=== PATIENT | male | born 1980 | race Caucasian/White ===

== ENCOUNTER 2023-06-09 15:48 | Emergency (ER) | payer MEDICARE, SELFPAY ==
[2023-06-09 15:52] VITALS: BP 151/120; PULSE 102; RESP 20; TEMP 36.4; O2SAT 98
[2023-06-09 16:25] LABS: Basophils Absolute Auto 0.1 K/mm3 (0.0-0.1); Basophils Percent Auto 0.5 % (0.2-1.2); Eosinophils Absolute Auto 0.1 K/mm3 (0-0.3); Eosinophils Percent Auto 1.2 % (0-4.4); Hematocrit 51.7 % (42.0-52.0); Hemoglobin 17.6 g/dL (14.0-18.0); Immature Granulocyte Absolute 0.04 K/mm3 (0.00-0.031); Immature Granulocyte Percent A 0.3 % (0-0.5); Lymphocytes Absolute Auto 2.02 K/mm3 (0.9-3.2); Lymphocytes Percent Auto 17.4 % (18.3-44.2); Mean Corpuscular Hemoglobin 31.4 pg (26-34); Mean Corpuscular Volume 92.3 fl (80-100); Monocytes Absolute Auto 0.9 K/mm3 (0.1-0.6); Neutrophils Absolute Auto 8.4 K/mm3 (1.3-6.7); Neutrophils Percent Auto 72.6 % (45.5-73.1); Platelet Count Result 203 k/mm3 (150-375); Red Cell Distribution Width 12.5 % (11.5-14.5); White Blood Count 11.6 K/mm3 (4.5-10.0)
[2023-06-09 16:32] LABS: Appearance Urine Clear (Clear); Bacteria Urine None Seen /hpf; Bilirubin Urine Negative (Negative); Blood Urine Negative (Negative); Color Urine Yellow (Yellow); Glucose Urine UA Negative (Negative); Ketones Urine Trace mg/dL (Negative); Leukocyte Esterase Ur Negative LEU/UL (Negative); Nitrate Urine Negative (Negative); Non Pathogenic Casts 0-2; Protein Urine Trace mg/dL (Negative); Specific Grav Ur 1.018 (1.001-1.035); Squamous Epithelial Cell Urine None Seen /hpf (Few); WBC Urine 0-5 /hpf (0-3)
[2023-06-09 16:36] LABS: Add Urine Microscopic? YES
[2023-06-09 16:44] LABS: Amphetamine Screen Urine Negative (Negative); Barbiturate Screen Urine Negative (Negative); Benzodiazepines Screen Urine Negative (Negative); Cannabinoid Screen Urine Positive (Negative); Cocaine Screen Urine Negative (Negative); Ethanol < 10 mg/dL (<10); Methadone Screen Urine Negative (Negative); Opiate Screen Urine Negative (Negative); Phencyclidine Screen Urine Negative (Negative)
[2023-06-09 16:45] LABS: Alanine Aminotransferase 18 U/L (6-50); Albumin Level 4.8 g/dL (3.5-5.1); Alkaline Phosphatase 74 U/L (38-126); Anion Gap 4 mmol/L (4-12); Aspartate Amino Transferase 25 U/L (17-59); Bilirubin,Total 1.3 mg/dL (0.2-1.3); Blood Urea Nitrogen 11 mg/dL (9-20); Calcium 9.6 mg/dL (8.4-10.2); Carbon Dioxide 28 mmol/L (22-30); Chloride 103 mmol/L (98-107); Estimated CRCL calculation 107 ml/min; Estimated Glomerular Filt Rate > 60; Glucose 100 mg/dL (65-110); Potassium 4.1 mmol/L (3.4-5.0); Sodium 135 mmol/L (137-145)
--- NOTE | 2023-06-09 17:22 | ED.PSYCH ---
HPI - Psych General Chief Complaint: Psychiatric Symptoms Stated Complaint: Bipolar, pastor Time Seen by Provider: 06/09/23 16:08 History of Present Illness HPI Narrative: Patient is a 43-year-old male with history of bipolar disorder, not currently on any medications here with acute pastor. Patient states that his father in 2019 and he has been struggling with his symptoms since that time. He notes an acute decompensation over the last 1 week. He states that he recently got involved with social media, believes that he gained a following on social media and had been in contact with a former ex girlfriend which has caused him to have racing thoughts and become preoccupied. He has had about 1 week without having any good sleep. He does note that he posted something on social media which was a picture threatening to harm his mother and this prompted him to get seen in the emergency department. He currently is denying any suicidal ideation but notes that he has frequently struggled with passive suicidal ideation without a plan for many years. He is not currently follow with any psychiatrist and does not take any medications as he believes he is medication resistant with his bipolar disorder. He had 1 prior psychiatric hospitalization approximately 20 years ago when he was 1st diagnosed with bipolar disorder. He denies any attempts at self-harm today. He does note impulsive behavior over the last week. 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 He does note regular marijuana use which he uses to help with his symptoms. , patient does note that yesterday he was jumping in his room and feels as though he pulled a muscle in his right calf. Denies falling to the ground or hitting this leg on anything. Related Data Allergies Allergy/AdvReac Type Severity Reaction Status Date / Time Penicillins Allergy Severe Unknown Verified 09/25/22 09:00 Review of Systems Review of Systems: All systems reviewed & are unremarkable except as noted in HPI and below PMFSH Family History Family History Father Hypertension Cerebrovascular accident Mother Diabetes mellitus Depression Social History Social History Smoking packs per day: 1 Smoking cigarettes per day: 20.0 Smoking status: Current every day smoker Tobacco type: cigarettes Alcohol intake: current Alcohol use details: social Substance use: current Substance use type: marijuana Other substance usage details: vape Lack of Transportation: No Lack of Food: Never True Current Housing: I Have Housing Concerned About Future Housing: No Difficulty Paying Gas/Electric Bills: No Difficulty Paying for Meds: No Currently Unemployed: Decline to Answer Education: High School Diploma/GED Difficulty w/ Childcare or Family Care: No Exam Narrative: GENERAL: Well-appearing, well-nourished, and in no acute distress. HEAD: Normocephalic, atraumatic. EYES: PERRLA and EOMI. ENT: Nares clear. Mucous membranes moist. NECK: Supple. CHEST: Clear to auscultation. No respiratory distress. HEART: Regular rate and rhythm. Normal peripheral pulses. ABDOMEN: Soft, nontender, nondistended. EXTREMITIES: Normal range of motion. No edema. Calf tenderness on the right, no bruising, deformities, swelling noted. SKIN: Warm, dry, no rash. NEURO: No focal deficits. Alert and oriented x3. PSYCH: Paranoia, impulsive decision making, passive suicidal thoughts Course Course Emergency Course: Chart review performed. Patient here with psychiatric complaints, history of bipolar. He is reportedly not taking his medications. Triage vitals show HTN, tachycardia, otherwise within normal limits. Patient seen jose antonio
[2023-06-09 17:41] LABS: Influenza A QL RT-PCR Negative (Negative); Influenza B QL RT-PCR Negative (Negative); RSV RNA, RT-PCR Negative (Negative); SARS-CoV-2 RNA PCR Negative (Negative)
--- NOTE | 2023-06-09 19:22 | PC.NURSE ---
Mother Kamilla, contact number [phone].
[2023-06-09 19:33] LABS: Acetaminophen < 10 ug/mL (10-30); Salicylate < 1.0 mg/dL (2-20)
--- NOTE | 2023-06-09 19:57 | PC.NURSE ---
this rn assumed care of patient. this rn took patient report from P[facility] M[facility].
== END 2023-06-09 21:30 | disposition home or self-care (01) ==
PROVIDERS: Physician Assistant; Emergency Provider Student in an Organized Health Care Education/Training Program; PCP Nurse Practitioner Family
DX: F30.2 Manic episode, severe with psychotic symptoms (principal); Z20.822 Contact with and (suspected) exposure to COVID-19; F17.210 Nicotine dependence, cigarettes, uncomplicated
CPT/HCPCS: 36415; 80053; 80307; 81001; 84443; 85025; 87637; 99284

== ENCOUNTER 2024-01-22 09:43 | Emergency (ER) | payer MEDICARE, SELFPAY ==
[2024-01-22 09:50] VITALS: BP 170/119; PULSE 116; RESP 16; TEMP 36.6; O2SAT 99
--- NOTE | 2024-01-22 10:37 | ED_ITS ---
HPI - Psych General Chief Complaint: Psychiatric Symptoms <Michelle Lentz PA-C - Last Filed: 01/24/24 10:52> Stated Complaint: psych eval <MICHEAL Brown Last Filed: 01/24/24 10:52> Time Seen by Provider: 01/22/24 10:07 <MICHEAL Brown Last Filed: 01/24/24 10:52> Source: patient <MICHEAL Brown Last Filed: 01/24/24 10:52> Mode of arrival: ambulatory <MICHEAL Brown Last Filed: 01/24/24 10:52> Limitations: no limitations <MICHEAL Brown Last Filed: 01/24/24 10:52> History of Present Illness HPI Narrative: This is a 43-year-old male that presents to the emergency department for psychiatric evaluation. He was brought in by the police department. Reports he lives with his mother who has bipolar disorder. Reports she is very toxic . He told her if they were crushed he would kill himself. Although he has no active plan to harm himself or anyone else's and reports he wants to live. He admits to not regularly taking his psychiatric medication. He also did not take his blood pressure medicine this morning. He does have a therapist that he sees. Reports previous history of attempts of self-harm in previous psychiatric hospitalizations. Denies hallucinations. <Michelle Lentz PA-C - Last Filed: 01/24/24 10:52> Related Data Allergies/Adverse Reactions: Allergies Allergy/AdvReac Type Severity Reaction Status Date / Time Penicillins Allergy Severe Unknown Verified 01/22/24 09:54 <MICHEAL Brown Last Filed: 01/24/24 10:52> Review of Systems Review of Systems: CONSTITUTIONAL: Denies fever PSYCHIATRIC: Reports anxiety and depression. <MICHEAL Brown Last Filed: 01/24/24 10:52> All systems reviewed & are unremarkable except as noted in HPI and below <MICHEAL Brown Last Filed: 01/24/24 10:52> [facility] Past Medical History Medical History: Medical History (Updated 01/22/24 @ 18:15 by Michelle Lentz PA-C) Bipolar disorder <Michelle Lentz PA-C - Last Filed: 01/24/24 10:52> Family History Family History: Family History Father Hypertension Cerebrovascular accident Mother Diabetes mellitus Depression <Michelle Lentz PA-C - Last Filed: 01/24/24 10:52> Social History Social History: Social History (Updated 10/30/23 @ 07:24 by Queta Moscoso [facility]) Smoking packs per day: 0.5 Smoking cigarettes per day: 10.0 Smoking status: Current every day smoker Tobacco type: cigarettes Alcohol intake: current Alcohol use details: social Substance use: current Substance use type: marijuana Other substance usage details: vape Do You Feel Safe in your Home?: No Lack of Transportation: No Lack of Food: Never True Current Housing: I Have Housing Concerned About Future Housing: No Difficulty Paying Gas/Electric Bills: No Difficulty Paying for Meds: No Currently Unemployed: Decline to Answer Education: High School Diploma/GED Difficulty w/ Childcare or Family Care: No Living arrangements: with family Occupation/Education: unemployed Gender identity (if verbalized by the patient): Male Spiritual care concerns: No Agree to blood products: No <Michelle Lentz PA-C - Last Filed: 01/24/24 10:52> Exam Narrative: GENERAL: Well-appearing, well-nourished, and in no acute distress. HEAD: Normocephalic, atraumatic. EYES: EOMI. CHEST: Clear to auscultation. No respiratory distress. No wheezes rales or rhonchi HEART: Regular rate and rhythm. No murmur heard. Normal peripheral pulses. EXTREMITIES: Normal range of motion. No edema. SKIN: Warm, dry, no rash. NEURO: No focal deficits. Alert and oriented x3. PSYCH: Tearful, mildly anxious <Michelle Lentz PA-C - Last Filed: 01/24/24 10:52> Course Course Emergency Course: Patient medically cleared for evaluation by crisis. Crisis believes patient would be best served to be admitted for further psychiatric evaluation/management <Michelle Lentz PA-C - Last Filed: 01/24/24 10:52> PHYSICAL INSTRUCTOR/PA Physician Supervision For this patient encounter, I reviewed the PHYSICAL INSTRUCTOR or PA documentation, treatment plan, and medical decision making; and I had [id number] time with this patient. <Juan Rodríguez MD - Last Filed: 01/27/24 18:55> Vital Signs Vital signs: Vital Signs Temperature 97.9 F 01/22/24 09:50 Pulse Rate 116 H 01/22/24 09:50 Respiratory Rate 16 01/22/24 09:50 Blood Pressure 170/119 H 01/22/24 09:50 Pulse Oximetry 99 01/22/24 09:50 Oxygen Delivery Room Air 01/22/24 09:50 Temperature 97.9 F 01/22/24 09:50 Pulse Rate 102 H 01/22/24 17:30 Respiratory Rate 17 01/22/24 17:30 Blood Pressure 152/92 H 01/22/24 17:30 Pulse Oximetry 99 01/22/24 17:30 Oxygen Delivery Room Air 01/22/24 09:50 <Michelle Lentz PA-C - Last Filed: 01/24/24 10:52> Vital Signs Temperature 97.9 F 01/22/24 09:50 Pulse Rate 116 H 01/22/24 09:50 Respiratory Rate 16 01/22/24 09:50 Blood Pressure 170/119 H 01/22/24 09:50 Pulse Oximetry 99 01/22/24 09:50 Oxygen Delivery Room Air 01/22/24 09:50 Temperature 97.9 F 01/22/24 09:50 Pulse Rate 102 H 01/22/24 17:30 Respiratory Rate 17 01/22/24 17:30 Blood Pressure 152/92 H 01/22/24 17:30 Pulse Oximetry 99 01/22/24 17:30 Oxygen Delivery Room Air 01/22/24 09:50 <Juan Rodríguez MD - Last Filed: 01/27/24 18:55> MDM - Psych MDM Narrative Medical decision making narrative: Patient presents to the emergency department for some suicidal and homicidal statements. History of bipolar disorder. Reports he does not routinely take his medications. Will pressure elevated upon arrival, he also reports he did not take his blood pressure medication. This improved with his home medication. CBC shows mild hemoconcentration. Metabolic panel without concerning findings. TSH is normal. Urine without evidence of infection. Drug screen positive for cannabinoids. Patient was medically cleared for evaluation by crisis. [facility] believes patient would be best served to be admitted for further psychiatric evaluation/management <Michelle Lentz PA-C - Last Filed: 01/24/24 10:52> Differential Diagnosis Differential diagnosis: Likely acute psychosis, chronic schizophrenia, suicidal ideation, bipolar disorder, depression and acute anxiety <Michelle Lentz PA-C - Last Filed: 01/24/24 10:52> Lab Data Attestation: I reviewed the patient's lab results. <Michelle Lentz PA-C - Last Filed: 01/24/24 10:52> Result diagrams: 01/22/24 10:31 01/22/24 10:31 <Michelle Lentz PA-C - Last Filed: 01/24/24 10:52> Labs: Lab Results 01/22/24 01/22/24 Range/Units 10:31 10:48 WBC 7.2 (4.5-10.0) K/mm3 RBC 5.94 (4.6-6.20) M/mm3 Hgb 18.8 H (14.0-18.0) g/dL Hct 54.4 H (42.0-52.0) % MCV 91.6 (80-100) fl MCH 31.6 (26-34) pg MCHC 34.6 (32-36) g/dl RDW 12.7 (11.5-14.5) % Plt Count 194 (150-375) k/mm3 MPV 10.2 (7.4-10.4) fl Immature Gran % (Auto) 0.1 (0-0.5) % Neut % (Auto) 52.5 (45.5-73.1) % Lymph % (Auto) 32.4 (18.3-44.2) % Schley % (Auto) 8.6 H (2.6-8.5) % Eos % (Auto) 5.3 H (0-4.4) % Baso % (Auto) 1.1 (0.2-1.2) % Lymph # (Auto) 2.34 (0.9-3.2) K/mm3 Schley # (Auto) 0.6 (0.1-0.6) K/mm3 Eos # (Auto) 0.4 H (0-0.3) K/mm3 Baso # (Auto) 0.1 (0.0-0.1) K/mm3 Abs Immat Gran (auto) 0.01 (0.00-0.031) K/mm3 Absolute Neuts (auto) 3.8 (1.3-6.7) K/mm3 Absolute Nucleated RBC 0.000 (0.0-0.012) K/mm3 Nucleated RBC % 0.0 (0.0-0.2) % Sodium 139 (137-145) mmol/L Potassium 4.3 (3.4-5.0) mmol/L Chloride 101 (98-107) mmol/L Carbon Dioxide 31 H (22-30) mmol/L Anion Gap 7 (4-12) mmol/L BUN 15 (9-20) mg/dL Creatinine 1.00 (0.7-1.3) mg/dL Estim Creat Clear Calc 97 ml/min Estimated GFR > 60 (59 - ) Glucose 106 (65-110) mg/dL Calcium 9.7 (8.4-10.2) mg/dL Total Bilirubin 0.7 (0.2-1.3) mg/dL AST 32 (17-59) U/L ALT 25 (6-50) U/L Alkaline Phosphatase 67 (38-126) U/L Total Protein 9.0 H (6.3-8.2) g/dL Albumin 5.1 (3.5-5.1) g/dL TSH (Reflex) 1.210 (0.465-4.68) uIU/mL Urine Color Yellow (Yellow) Urine Appearance Clear (Clear) Urine pH 5.5 (5.0-9.0) Ur Specific [place] 1.009 (1.001-1.035) Urine Protein Negative (Negative) mg/dL Urine Glucose (UA) Negative (Negative) mg/dL Urine Ketones Negative (Negative) mg/dL Ur Blood (Man) Negative (Negative) Urine Nitrate Negative (Negative) Urine Bilirubin Negative (Negative) Urine Urobilinogen 0.2 (<2.0) mg/dL Leukocyte Esterase Rfl Negative (Negative) HENRI/UL Urine Opiates Screen Negative (Negative) Urine Methadone Screen Negative (Negative) Ur Barbiturates Screen Negative (Negative) Ur Phencyclidine Scrn Negative (Negative) Ur Amphetamine Screen Negative (Negative) U Benzodiazepines Scrn Negative (Negative) Urine Cocaine Screen Negative (Negative) U Cannabinoids Screen Positive A (Negative) Ethyl Alcohol < 10 (<10) mg/dL SARS-CoV-2 RNA (RT-PCR) Negative (Negative) <Michelle Lentz PA-C - Last Filed: 01/24/24 10:52> Lab Results 01/22/24 01/22/24 Range/Units 10:31 10:48 WBC 7.2 (4.5-10.0) K/mm3 RBC 5.94 (4.6-6.20) M/mm3 Hgb 18.8 H (14.0-18.0) g/dL Hct 54.4 H (42.0-52.0) % MCV 91.6 (80-100) fl MCH 31.6 (26-34) pg MCHC 34.6 (32-36) g/dl RDW 12.7 (11.5-14.5) % Plt Count 194 (150-375) k/mm3 MPV 10.2 (7.4-10.4) fl Immature Gran % (Auto) 0.1 (0-0.5) % Neut % (Auto) 52.5 (45.5-73.1) % Lymph % (Auto) 32.4 (18.3-44.2) % Schley % (Auto) 8.6 H (2.6-8.5) % Eos % (Auto) 5.3 H (0-4.4) % Baso % (Auto) 1.1 (0.2-1.2) % Lymph # (Auto) 2.34 (0.9-3.2) K/mm3 Schley # (Auto) 0.6 (0.1-0.6) K/mm3 Eos # (Auto) 0.4 H (0-0.3) K/mm3 Baso # (Auto) 0.1 (0.0-0.1) K/mm3 Abs Immat Gran (auto) 0.01 (0.00-0.031) K/mm3 Absolute Neuts (auto) 3.8 (1.3-6.7) K/mm3 Absolute Nucleated RBC 0.000 (0.0-0.012) K/mm3 Nucleated RBC % 0.0 (0.0-0.2) % Sodium 139 (137-145) mmol/L Potassium 4.3 (3.4-5.0) mmol/L Chloride 101 (98-107) mmol/L Carbon Dioxide 31 H (22-30) mmol/L Anion Gap 7 (4-12) mmol/L BUN 15 (9-20) mg/dL Creatinine 1.00 (0.7-1.3) mg/dL Estim Creat Clear Calc 97 ml/min Estimated GFR > 60 (59 - ) Glucose 106 (65-110) mg/dL Calcium 9.7 (8.4-10.2) mg/dL Total Bilirubin 0.7 (0.2-1.3) mg/dL AST 32 (17-59) U/L ALT 25 (6-50) U/L Alkaline Phosphatase 67 (38-126) U/L Total Protein 9.0 H (6.3-8.2) g/dL Albumin 5.1 (3.5-5.1) g/dL TSH (Reflex) 1.210 (0.465-4.68) uIU/mL Urine Color Yellow (Yellow) Urine Appearance Clear (Clear) Urine pH 5.5 (5.0-9.0) Ur Specific [place] 1.009 (1.001-1.035) Urine Protein Negative (Negative) mg/dL Urine Glucose (UA) Negative (Negative) mg/dL Urine Ketones Negative (Negative) mg/dL Ur Blood (Man) Negative (Negative) Urine Nitrate Negative (Negative) Urine Bilirubin Negative (Negative) Urine Urobilinogen 0.2 (<2.0) mg/dL Leukocyte Esterase Rfl Negative (Negative) HENRI/UL Urine Opiates Screen Negative (Negative) Urine Methadone Screen Negative (Negative) Ur Barbiturates Screen Negative (Negative) Ur Phencyclidine Scrn Negative (Negative) Ur Amphetamine Screen Negative (Negative) U Benzodiazepines Scrn Negative (Negative) Urine Cocaine Screen Negative (Negative) U Cannabinoids Screen Positive A (Negative) Ethyl Alcohol < 10 (<10) mg/dL SARS-CoV-2 RNA (RT-PCR) Negative (Negative) <Juan Rodríguez MD - Last Filed: 01/27/24 18:55> Critical Care Time Critical Care Time Critical Care Time: No <Michelle Lentz PA-C - Last Filed: 01/24/24 10:52> Discharge Plan Discharge Clinical Impression: Bipolar disorder Qualifiers: Active/Remission status: currently active Current bipolar episode type: mixed Current episode severity: unspecified Qualified Code(s): F31.60 - Bipolar disorder, current episode mixed, unspecified <Michelle Lentz PA-C - Last Filed: 01/24/24 10:52> Patient Disposition: Psychiatric Hosp <Michelle Lentz PA-C - Last Filed: 01/24/24 10:52> Condition: Stable <Michelle Lentz PA-C - Last Filed: 01/24/24 10:52> Prescriptions: No Action olanzapine 10 mg tablet 10 mg PO QHS Qty: 30 3RF Hold Instructions: .Provider Order lisinopril 5 mg tablet 5 mg PO DAILY Qty: 90 1RF Hold Instructions: .Provider Order triamcinolone acetonide 0.1 % ointment 1 applic topical BID Qty: 30 0RF <Michelle Lentz PA-C - Last Filed: 01/24/24 10:52> Follow-up/Referrals: Nimco Blankenship APRN [Primary Care Provider] - <Michelle Lentz PA-C - Last Filed: 01/24/24 10:52>
[2024-01-22 10:55] LABS: Add Urine Microscopic? NO; Appearance Urine Clear (Clear); Bilirubin Urine Negative (Negative); Blood Urine Negative (Negative); Color Urine Yellow (Yellow); Glucose Urine UA Negative (Negative); Ketones Urine Negative (Negative); Leukocyte Esterase Ur Negative LEU/UL (Negative); Nitrate Urine Negative (Negative); Protein Urine Negative (Negative); Specific Grav Ur 1.009 (1.001-1.035); Urobilinogen Urine 0.2 mg/dL (<2.0); pH Urine 5.5 (5.0-9.0)
[2024-01-22 10:58] LABS: Basophils Absolute Auto 0.1 K/mm3 (0.0-0.1); Basophils Percent Auto 1.1 % (0.2-1.2); Eosinophils Absolute Auto 0.4 K/mm3 (0-0.3); Eosinophils Percent Auto 5.3 % (0-4.4); Hematocrit 54.4 % (42.0-52.0); Hemoglobin 18.8 g/dL (14.0-18.0); Immature Granulocyte Absolute 0.01 K/mm3 (0.00-0.031); Immature Granulocyte Percent A 0.1 % (0-0.5); Lymphocytes Absolute Auto 2.34 K/mm3 (0.9-3.2); Lymphocytes Percent Auto 32.4 % (18.3-44.2); Mean Corpuscular HGB Conc 34.6 g/dl (32-36); Mean Corpuscular Hemoglobin 31.6 pg (26-34); Mean Corpuscular Volume 91.6 fl (80-100); Mean Platelet Volume 10.2 fl (7.4-10.4); Monocytes Absolute Auto 0.6 K/mm3 (0.1-0.6); Monocytes Percent Auto 8.6 % (2.6-8.5); Neutrophils Absolute Auto 3.8 K/mm3 (1.3-6.7); Neutrophils Percent Auto 52.5 % (45.5-73.1); Platelet Count Result 194 k/mm3 (150-375); Red Blood Count 5.94 M/mm3 (4.6-6.20); Red Cell Distribution Width 12.7 % (11.5-14.5); White Blood Count 7.2 K/mm3 (4.5-10.0)
[2024-01-22 10:59] LABS: Ethanol < 10 mg/dL (<10)
[2024-01-22 11:00] LABS: Alanine Aminotransferase 25 U/L (6-50); Albumin Level 5.1 g/dL (3.5-5.1); Alkaline Phosphatase 67 U/L (38-126); Anion Gap 7 mmol/L (4-12); Aspartate Amino Transferase 32 U/L (17-59); Bilirubin,Total 0.7 mg/dL (0.2-1.3); Blood Urea Nitrogen 15 mg/dL (9-20); Calcium 9.7 mg/dL (8.4-10.2); Carbon Dioxide 31 mmol/L (22-30); Chloride 101 mmol/L (98-107); Estimated CRCL calculation 97 ml/min; Estimated Glomerular Filt Rate > 60; Glucose 106 mg/dL (65-110); Potassium 4.3 mmol/L (3.4-5.0); Sodium 139 mmol/L (137-145)
[2024-01-22 11:22] LABS: Amphetamine Screen Urine Negative (Negative); Barbiturate Screen Urine Negative (Negative); Benzodiazepines Screen Urine Negative (Negative); Cannabinoid Screen Urine Positive (Negative); Cocaine Screen Urine Negative (Negative); Methadone Screen Urine Negative (Negative); Opiate Screen Urine Negative (Negative); Phencyclidine Screen Urine Negative (Negative)
[2024-01-22] MEDS: LORazepam (*CRX) 0.5 MG TABLET PO (11:25)
[2024-01-22] MEDS: lisinopriL 5 MG TABLET PO (11:25)
[2024-01-22 11:26] LABS: SARS-CoV-2 RNA PCR Negative (Negative)
--- NOTE | 2024-01-22 14:10 | PC.NURSE ---
crisis reports to this RN that pt had verbalized homicidal thoughts towards his mother and has plans in place. pt does have access to firearms at home. plan to have pt placed involuntary. EDP made aware.
--- NOTE | 2024-01-22 15:18 | PC.NURSE ---
asked pt if he would like anything to eat or drink. pt states no I'm good go ahead and just say I refused and get that stuff started told pt if he changes his mind to let me know.
--- NOTE | 2024-01-22 15:53 | PC.NURSE ---
Sunitha from [facility] called and states they will accept pt.
[2024-01-22 17:30] VITALS: BP 152/92; PULSE 102; RESP 17; O2SAT 99
--- NOTE | 2024-01-22 19:43 | PC.NURSE ---
accepting physician at [facility] is Dr. Adams. Report was called to P[facility]. ETA for transfer is around 1999.
== END 2024-01-22 20:58 ==
PROVIDERS: Emergency Provider Physician Assistant; PCP Nurse Practitioner Family
DX: F31.60 Bipolar disorder, current episode mixed, unspecified (principal); Z11.52 Encounter for screening for COVID-19; I10 Essential (primary) hypertension; F17.210 Nicotine dependence, cigarettes, uncomplicated; T46.5X6A Underdosing of other antihypertensive drugs, initial encounter; T43.506A Underdosing of unspecified antipsychotics and neuroleptics, initial encounter; Z91.128 Patient's intentional underdosing of medication regimen for other reason; Z79.899 Other long term (current) drug therapy
CPT/HCPCS: 36415; 80053; 80307; 81003; 82077; 84443; 85025; 87635; 99285; A9270

== ENCOUNTER 2025-03-01 15:58 | Emergency (ER) | payer MEDICARE, SELFPAY ==
--- OUTSIDE RECORDS SUMMARY | 2024-05-27 02:00 | XMS_ITS ---
Author Organization [facility] [employer] [facility] Address [address] [facility] [address] [place] [address] Care Team Providers Care Stunt Driver Name Role Phone Nimco MONTE Primary Care Provider Unavailab Ramandeep Raygoza Unavailable [phone] Mendel Parker Unavailable [phone] REASON FOR VISIT 1 month f/u Social History Sex Assigned At : Social History Observation Description Sex Assigned At Male Encounters Encounter Location Date Provider Diagnosis [facility] [employer] [facility] [address] [facility] [address] [place] [address] 05/27/2024 Mendel Parker Plan Of Treatment No Information Progress Notes * CYNTHIA ALCANTARA RDOB:[birth year] (44 yo M)Acc No.[id number]:05/27/2024 Patient: CYNTHIA BROOKS Provider: Chris Parker LCPC :1980 A ge:43 Y S ex:Male Date:05/27/2024 Address:[address] [id number] Pcp:Nimco BENITES Data: * Chief Complaints: * 1 month f/u Billing Information: * Procedure Codes: * Electronic signature of Olayinka Parker LCPC on 03/01/2025 at 05:09 PM REAL ESTATE LOAN OFFICER Sign off status: Pending Signatures: No Ad Hoc Signature Added * Provider: Chris Parker LCPC Date: 0 05/27/2024 Generated for Edwin campbell/Yoanna/Misael on: 1 05/02/2024 05:09 PM REAL ESTATE LOAN OFFICER
--- OUTSIDE RECORDS SUMMARY | 2024-09-28 05:15 | XMS_ITS ---
Author Organization [facility] [employer] [facility] Address [facility] [facility] [address] [place] [address] Care Team Providers Care Nuclear Fuel Processing Technician Name Role Phone Nimco MONTE Primary Care Provider Unavailab Ramandeep Raygoza Unavailable [phone] REASON FOR VISIT 1 month f/u Social History Sex Assigned At : Social History Observation Description Sex Assigned At Male Encounters Encounter Location Date Provider Diagnosis [facility] [employer] [place] [address] [facility] [address] [place] [address] 09/28/2024 Ramandeep Sandhu Plan Of Treatment No Information Progress Notes * CYNTHIA ALCANTARA RDOB:[birth year] (44 yo M)Acc No.[id number]:09/28/2024 Patient: Niurka PETERSONCYNTHIA Provider: NAUN KU :1980 A ge:44 Y S ex:Male Date:09/28/2024 Address:[address] [id number] Pcp:Nimco BENITES Subjective: * Chief Complaints: * 1 month f/u * Electronic signature of NAUN Frank on 03/01/2025 at 05:09 PM POSTAL SUPPORT EMPLOYEE Sign off status: Pending * Provider: NAUN KU Date: 0 09/28/2024 Generated for Ednai ng/Faxing/eTransmitting on: 1 05/02/2024 05:09 PM POSTAL SUPPORT EMPLOYEE
--- NOTE | ~2025-03-01 | CT_ITS ---
EXAMINATION: CT abdomen pelvis w con DATE: 03/01/2025 19:56 INDICATION: Epigastric pain TECHNIQUE: Computed tomography (CT) of the abdomen and pelvis was performed with 100 cc Omnipaque 350 intravenous contrast. The dose-length product was 438.36 mGy-cm. Automated exposure control and iterative reconstruction technique were employed. COMPARISON: None. FINDINGS: Lung bases unremarkable. Heart size normal. No significant pleural or pericardial effusion. No significant vascular abnormality. No lymphadenopathy. Fatty infiltration of the liver. The spleen, pancreas, adrenal glands and kidneys are unremarkable. Gallbladder is present. No free air or free fluid. No acute osseous abnormality. Mild lumbar spondylosis. IMPRESSION: 1. No acute abdominal abnormality. 2: Fatty infiltration of the liver. Reviewed, dictated and finalized at location O. ICAL SYSTEMS EDUCATOR
[2025-03-01 16:29] VITALS: BP 169/116; PULSE 96; RESP 16; TEMP 36.6; O2SAT 99
--- OUTSIDE RECORDS SUMMARY | 2025-03-01 17:10 | XMS_ITS | Clinical Summary ---
Author Organization [facility] Address [facility] [place] [address] Care Team Providers Care Productivity Engineer Name Role Phone Unavailable Primary Care Provider Unavailabl e Social History Tobacco Use Types Packs/Day Years Used Date Smoking Tobacco: Never Assessed Sex and Gender Information Value Date Recorded Sex Assigned at Not on file Legal Sex Male 6:36 PM CDT Gender Identity Not on file Sexual Orientation Not on file Plan of Treatment Health Maintenance Due Date Last Done Comments Annual Physical 1985 Hepatitis C 2000 DTaP, Tdap and Td Vaccines ( 1 - Tdap) 2001 Hepatitis B Vaccines (1 of 3 - 19+ 3-dose series) 2001 HPV Vaccines (1 - 3-dose SCD M series) 2009 COVID-19 Vaccine ( - 2024-2 6 season) 2024 Influenza Adult (#1) 2024 Hepatitis A Vaccines Aged Out No long er eligible based on patient's age to complete this topic Meningococcal B Vaccine Aged Out No l onger eligible based on patient's age to complete this topic Meningococcal Vaccine Aged Out No osiel clary eligible based on patient's age to complete this topic Pneumococcal Vaccine: Pediat rics (0 to 5 Years) and At-Risk Patients (6 to 49 Years) Aged Out No longer eligible b ased on patient's age to complete this topic RSV Immunizations Under 20 Months Aged Out No longer eligible based on patient's age to complete this topic
--- OUTSIDE RECORDS SUMMARY | 2025-03-01 17:10 | XMS_ITS | Patient Health Record ---
Author Organization [facility] [employer] Address [address] [facility] [address] [place] [address] Care Team Providers Care Rubber Process Hand Name Role Phone PIERRE DELMISNimco Primary Care Provider Unavailab Ramandeep Raygoza Unavailable [phone] Mendel Parker Unavailable [phone] Pawel Mathis Unavailable [phone] Allergies Allergen (clinical drug ingredient) Drug/Non Drug Allergy documented on EMR Reaction Allergy Type Onset Date Status Substance with penicillin structure and antibacterial mechanism of action (substance) Penicillins Unknown Drug Allergy 07/22/2023 Active Reason For Referral No Information Medications Medication SIG (Take, Route, Frequency, Duration) Notes Start Date End Date Status ARIPiprazole 20 MG Tablet 1 tablet Orall y daily; Duration: 30 days Active Lisinopril 10 MG Tablet 1 tablet Orally Once a day 07/22/2023 Active Social History Tobacco Use: Social History Observation Description Date Details (start date - stop date) Current Smoker 03/22/1995 - NA Sex Assigned At : Social History Observation Description Sex Assigned At Male Social History Household: Social Info Question Answer Notes Household Marital status: single Tobacco Use: Social Info Question Answer Notes Tobacco Control (Standard) Tobacco use: Current smoker When did you start smoking? 03/22/1995 How often do you smoke cigarettes? Every day How many cigarettes a day do you smoke? 11-20 How soon after you wake up do you smoke your first cigarette? 31-60 minutes Are you interested in quitting? Thinking about quitting Additional Details Category Social Info Options Details Miscellaneous: Occupation: disability Migrated Social History Migrated Social History Alcohol Intake: Occasional 07/22/2023,Tobacco Years: Current every day smoker 06/20/2023 Problems Problem Type SNOMED Code ICD Code Onset Dates Problem Status W/U Status Risk Notes Problem Schizoaffective disorder, bipolar type (70509732) Schizoaffective disorder, bipolar type (F25.0) Active confirmed Problem Bipolar affective disorder, currently depressed, mild (409380300) Bipolar disorder, current episode depressed, mild (F31.31) Active confirmed Problem Paranoid personality disorder (65072211) Paranoid personality disorder (F60.0) Active confirmed Problem Generalized anxiety disorder (89429887) KEENAN (generalized anxiety disorder) (F41.1) Active confirmed Problem Bipolar affective disorder, currently depressed, mild (241545044) Bipolar 1 disorder, depressed, mild (F31.31) Active confirmed Problem Attention deficit hyperactivity disorder (241370424) Attention deficit hyperactivity disorder (ADHD), unspecified ADHD type (F90.9) Active confirmed Problem Unable to concentrate (finding) (27189525) Difficulty concentrating (R41.840) Active confirmed Problem Schizoaffective schizophrenia (728346877) Schizoaffective schizophrenia (F25.9) Active confirmed Problem Suicidal thoughts (4630471) Suicidal thoughts (R45.851) Active confirmed Problem Tobacco dependence (42798126) Tobacco dependence (F17.200) Active confirmed Problem Noncompliance in general (finding) (8547076756) Medical non-compliance (Z91.199) Active confirmed Problem Delusional disorder (88386665) Paranoia (psychosis) (F22) Active confirmed Vital Signs Heart Rate 105 /min 08/28/2024 Height-cm 185.42 cm 08/28/2024 Blood pressure diastolic 112 mm Hg 08/28/2024 Weight-kg 101.61 kg 08/28/2024 Height 73.00 in 08/28/2024 Blood pressure systolic 177 mm Hg 08/28/2024 Weight 224 lbs 08/28/2024 BMI 29.55 kg/m2 08/28/2024 Procedures Procedure Date Ordered Date Performed Result Body Sit e ADHD Testing 07/24/2024 N/A Encounters Encounter [facility] Date [facility] [address] [place] [id number] 05/05/2024 Ramandeep Sandhu Benign essential HTN I10 and Schizoaffective disorder, bipolar type F25.0 [place] [address] [place] [address] 05/08/2024 Mendel Parker Bipolar 1 disorder, depressed, mild F31.31 and Generalized anxiety disorder F41.1 [place] [address] [place] [address] 05/26/2024 Ramandeep Sandhu Benign essential HTN I10 ; Encounter for screening for cardiovascular disorders Z13.6 ; Dietary counseling and surveillance Z71.3 ; Encounter for screening for depression Z13.31 ; Nicotine use Z72.0 and Schizoaffective disorder, bipolar type F25.[address] [place] [address] 06/03/2024 Mendel Parker Nicotine use Z72.0 ; Bipolar 1 disorder, depressed, mild F31.31 and Generalized anxiety disorder F41.1 [place] [address] [place] [address] 06/24/2024 Ramandeep Sandhu Encounter for screen ing for depression Z13.31 ; Benign essential HTN I10 ; Encounter for screening for cardiovascular disorders Z13.6 ; Dietary counseling and surveillance Z71.3 ; Nicotine use Z72.0 and Schizoaffective disorder, bipolar type F25.0 [place] [address] [place] [address] 07/07/2024 Mendel Parker Nicotine use Z72.0 ; Bipolar 1 disorder, depressed, mild F31.31 and Generalized anxiety disorder F41.1 [place] [address] [place] [address] 07/24/2024 Ramandeep Sandhu Encounter for screen ing for depression Z13.31 ; Schizoaffective disorder, bipolar type F25.0 ; Nicotine use Z72.0 ; Benign essential HTN I10 ; Encounter for screening for cardiovascular disorders Z13.6 ; Dietary counseling and surveillance Z71.3 and Difficulty concentrating R41.840 [place] [address] [place] [address] 07/30/2024 Pawel Mathis Attention deficit hyperactivity disorder (ADHD), unspecified ADHD type F90.9 [place] [address] [facility] [address] [place] [address] 08/28/2024 Ramandeep Sandhu Schizoaffective disorder, bipolar type F25.0 ; Encounter for screening for depression Z13.31 ; Nicotine use Z72.0 ; Benign essential HTN I10 ; Encounter for screening for cardiovascular disorders Z13.6 ; Dietary counseling and surveillance Z71.3 and Difficulty concentrating R41.840 [place] [address] [facility] [address] [place] [address] 07/27/2024 Ramandeep Sandhu [facility], [place] [address] [address] 07/30/2024 Ramandeep Sandhu [facility], [place] [address] [address] 04/27/2024 Ramandeep Sandhu [facility], [place] [address] [address] 04/27/2024 Ramandeep Sandhu [facility], [place] [address] [address] 04/28/2024 Ramandeep Sandhu [facility], [place] [address] [address] 04/28/2024 Ramandeep Sandhu [facility], [place] [address] [address] 05/06/2024 Ramandeep Sandhu [facility], [place] [address] [address] 07/21/2024 Ramandeep Sandhu [facility], [place] [address] [address] 12/16/2024 Ramandeep Sandhu Assessments Encounter Date Diagnosis (ICD Code) Assessment Notes Treatment Notes Treatment Clinical Notes Section Notes 05/05/2024 Schizoaffective disorder, bipolar type (ICD-10 - F25.0) Second generation antipsychotics (SGAs) have metabolic syndrome issues with weight gain, increase in prolactin, increased waist circumference, increased lipids, and increased glucose. Thus routine monitoring of weight, metabolic labs, etc. is indicated. A general rank ordering of antipsychotics that have the greatest to the least risk of metabolic effects is olanzapine, quetiapine, risperidone, ziprasidone, and aripiprazole. However, weight gain can occur with all of these drugs and considerable variability exists among patients receiving the same drug regarding the risk of metabolic effects. Anti-psychotic agents not only increase the risk of metabolic disorder, they also increase the risk of CVA, akathisia, and movement disorders including EPS or tardive dyskinesia (more common with first generation antipsychotics) and more. 05/05/2024 Benign essential HTN (ICD-10 - I10) 05/08/2024 Generalized anxiety disorder (ICD-10 - F41.1) 43 year old single male seen today for initial assessment to start individual psychotherapy . Noted that he has seen Arminda Addison for the past couple of months for medication therapy. Hx of depression and anxiety reported by client. Diagnosed with Bipolar in 2003 after a psych admission for a suicide attempt(drank rat poison). This was his second psych admission. Client noted that he has suffered from depression and anxiety for most of his life. Denied any childhood abuse but repeatedly stated that I got turned into a monster by the men that I said something about. Client moreover claimed that [facility] his life has not been the same. Believes that people are out to get him and do him harm, physical and fiancial. Client currrently lives with his mother and added that maternal grandmother lives next door. Client only child born to parents who had been 28 years when father in 2020. Suspects that father may have been murdered. Relationship with mother was good until father's . He described childhood as text book. Client paranoid and evasive hrough out assessment. 05/08/2024 Bipolar 1 disorder, depressed, mild (ICD-10 - F31.31) 43 year old single male seen today for initial assessment to start individual psychotherapy . Noted that he has seen Arminda Addison for the past couple of months for medication therapy. Hx of depression and anxiety reported by client. Diagnosed with Bipolar in 2003 after a psych admission for a suicide attempt(drank rat poison). This was his second psych admission. Client noted that he has suffered from depression and anxiety for most of his life. Denied any childhood abuse but repeatedly stated that I got turned into a monster by the men that I said something about. Client moreover claimed that [facility] his life has not been the same. Believes that people are out to get him and do him harm, physical and fiancial. Client currrently lives with his mother and added that maternal grandmother lives next door. Client only child born to parents who had been 28 years when father in 2020. Suspects that father may have been murdered. Relationship with mother was good until father's . He described childhood as text book. Client paranoid and evasive hrough out assessment. 05/26/2024 Benign essential HTN (ICD-10 - I10) 06/03/2024 Bipolar 1 disorder, depressed, mild (ICD-10 - F31.31) 43 year old single male seen today for initial assessment to start individual psychotherapy . Noted that he has seen Arminda Addison for the past couple of months for medication therapy. Hx of depression and anxiety reported by client. Diagnosed with Bipolar in 2003 after a psych admission for a suicide attempt(drank rat poison). This was his second psych admission. Client noted that he has suffered from depression and anxiety for most of his life. Denied any childhood abuse but repeatedly stated that I got turned into a monster by the men that I said something about. Client moreover claimed that once he joined the [employer] his life has not been the same. Believes that people are out to get him and do him harm, physical and fiancial. Client currrently lives with his mother and added that maternal grandmother lives next door. Client only child born to parents who had been 28 years when father in 2020. Suspects that father may have been murdered. Relationship with mother was good until father's . He described childhood as text book. Client paranoid and evasive hrough out assessment. 06/03/2024 Nicotine use (ICD-10 - Z72.0) 43 year old single male seen today for initial assessment to start individual psychotherapy . Noted that he has seen Arminda Addison for the past couple of months for medication therapy. Hx of depression and anxiety reported by client. Diagnosed with Bipolar in 2003 after a psych admission for a suicide attempt(drank rat poison). This was his second psych admission. Client noted that he has suffered from depression and anxiety for most of his life. Denied any childhood abuse but repeatedly stated that I got turned into a monster by the men that I said something about. Client moreover claimed that once he joined the [employer] his life has not been the same. Believes that people are out to get him and do him harm, physical and fiancial. Client currrently lives with his mother and added that maternal grandmother lives next door. Client only child born to parents who had been 28 years when father in 2020. Suspects that father may have been murdered. Relationship with mother was good until father's . He described childhood as text book. Client paranoid and evasive hrough out assessment. 06/24/2024 Encounter for screening for depression (ICD-10 - Z13.31) 07/07/2024 Bipolar 1 disorder, depressed, mild (ICD-10 - F31.31) 43 year old single male seen today for initial assessment to start individual psychotherapy . Noted that he has seen Arminda Addison for the past couple of months for medication therapy. Hx of depression and anxiety reported by client. Diagnosed with Bipolar in 2003 after a psych admission for a suicide attempt(drank rat poison). This was his second psych admission. Client noted that he has suffered from depression and anxiety for most of his life. Denied any childhood abuse but repeatedly stated that I got turned into a monster by the men that I said something about. Client moreover claimed that once he joined the [employer] his life has not been the same. Believes that people are out to get him and do him harm, physical and fiancial. Client currrently lives with his mother and added that maternal grandmother lives next door. Client only child born to parents who had been 28 years when father in 2020. Suspects that father may have been murdered. Relationship with mother was good until father's . He described childhood as text book. Client paranoid and evasive hrough out assessment. 07/07/2024 Nicotine use (ICD-10 - Z72.0) 43 year old single male seen today for initial assessment to start individual psychotherapy . Noted that he has seen Arminda Addison for the past couple of months for medication therapy. Hx of depression and anxiety reported by client. Diagnosed with Bipolar in 2003 after a psych admission for a suicide attempt(drank rat poison). This was his second psych admission. Client noted that he has suffered from depression and anxiety for most of his life. Denied any childhood abuse but repeatedly stated that I got turned into a monster by the men that I said something about. Client moreover claimed that once he joined the [employer] his life has not been the same. Believes that people are out to get him and do him harm, physical and fiancial. Client currrently lives with his mother and added that maternal grandmother lives next door. Client only child born to parents who had been 28 years when father in 2020. Suspects that father may have been murdered. Relationship with mother was good until father's . He described childhood as text book. Client paranoid and evasive hrough out assessment. 07/24/2024 Schizoaffective disorder, bipolar type (ICD-10 - F25.0) Second generation antipsychotics (SGAs) have metabolic syndrome issues with weight gain, increase in prolactin, increased waist circumference, increased lipids, and increased glucose. Thus routine monitoring of weight, metabolic labs, etc. is indicated. A general rank ordering of antipsychotics that have the greatest to the least risk of metabolic effects is olanzapine, quetiapine, risperidone, ziprasidone, and aripiprazole. However, weight gain can occur with all of these drugs and considerable variability exists among patients receiving the same drug regarding the risk of metabolic effects. Anti-psychotic agents not only increase the risk of metabolic disorder, they also increase the risk of CVA, akathisia, and movement disorders including EPS or tardive dyskinesia (more common with first generation antipsychotics) and more. 07/24/2024 Encounter for screening for depression (ICD-10 - Z13.31) 07/30/2024 Attention deficit hyperactivity disorder (ADHD), unspecified ADHD type (ICD-10 - F90.9) Interpretation of ADHD-Related Cognitive Results Subject: Male, age 35-44 Assessment Date: 2024-07-30 Cognitive Markers Outside Typical Range: 5 ASRS Questionnaire Results: Not provided on this page, so this interpretation is based strictly on objective cognitive markers. Cognitive Domain Analysis Planning (Spatial Planning) Score: 18 Threshold: greater than 11 Percentile: 48 Interpretation: Planning abilities are within normal range. The percentile reflects average executive function related to organizing steps and actions toward goals. Working Memory (Token Search) Score: 4.5 Threshold: greater than 4.5 Percentile: 15 Interpretation: Marginal performance at the threshold. This may indicate difficulty holding and manipulating information during tasks, especially under cognitive load or distractions. Attention (Feature Match) Errors: 1 Reaction Time: 3209 milliseconds Percentile for Reaction Time: 69 Interpretation: Accuracy is within typical range, and processing speed is slightly slower than average. Attention is functional but may become strained during extended or high-pressure tasks. Response Inhibition (Double Trouble) Errors: 16 Threshold: less than 13 Percentile: 91 Interference Ratio (Errors): 3.5 Interference RT Ratio: 1 Percentile for RT Interference: 10 Interpretation: Marked difficulty inhibiting responses, particularly in distracting or conflicting conditions. Inhibition efficiency is poor, suggesting impulsivity and difficulty focusing under interference. Sustained Attention (SART) Commission Errors: 4 Omission Errors: 181 Reaction Time Variability: 357 milliseconds Slowing After Errors: -255 milliseconds Percentiles: 12 (commission), 100 (omission), 100 (RT variability), 0 (post-error slowing) Interpretation: This pattern shows a critical impairment in sustained attention. The extremely high number of omission errors and total lack of post-error adaptation indicate a strong tendency to disengage or lapse in vigilance during prolonged tasks. High variability further supports attention inconsistency. Summary of Cognitive Findings Mild deficits in working memory Significant impairment in response inhibition and sustained attention High inconsistency in task performance with little corrective behavior after mistakes Slow, but within-normal processing speed with preserved planning ability This cognitive profile strongly suggests executive dysfunction, particularly in maintaining attention and filtering distractions, which are hallmark features in adult ADHD and related attentional disorders. Non-Pharmacologi c Treatment Recommendations 1. Attention Maintenance and Vigilance Training Practice sustained attention tasks such as paced visual tracking, mindfulness-base d focus exercises, or continuous performance tasks (CPT). Use timers or structured intervals to break long tasks into shorter, manageable sessions with scheduled focus breaks. 2. Response Inhibition Exercises Engage in interference control training such as Stroop-like digital games or apps that train inhibition of dominant responses. Include impulse regulation strategies like counting before responding and [id number] routines during conversations or decision-making. 3. Working Memory Support Use external scaffolds such as whiteboards, to-do lists, and jesus-based memory aids to offset internal memory limitations. Practice digit span and chunking exercises to improve cognitive load handling. 4. Real-Time Error Awareness and Correction Train with immediate feedback tools where performance errors trigger visual or auditory cues to build awareness and encourage corrective slowing. Introduce self-monitoring checklists post-task to assess for accuracy and completeness. 5. Lifestyle and Environmental Optimization Optimize sleep, nutrition, and hydration which influence attention span and cognitive variability. Create low-distraction environments with designated focus zones at home or work. Consider noise-masking tools or calming music for routine attention-demand ing tasks. 6. Physical Exercise and Neurocognitive Activation Encourage moderate daily aerobic activity, which improves attention regulation and neuroplasticity. Include coordination-bas ed physical tasks (e.g., martial arts, yoga, dance) that demand executive attention and control. This individual's profile presents with executive attention vulnerabilities that interfere with consistent performance. Structured cognitive interventions, behavioral compensation strategies, and environmental controls will be essential in managing attentional drift and enhancing functional outcomes. Further review of ASRS or clinical interview findings is recommended for a more integrated approach. 08/28/2024 Schizoaffective disorder, bipolar type (ICD-10 - F25.0) Second generation antipsychotics (SGAs) have metabolic syndrome issues with weight gain, increase in prolactin, increased waist circumference, increased lipids, and increased glucose. Thus routine monitoring of weight, metabolic labs, etc. is indicated. A general rank ordering of antipsychotics that have the greatest to the least risk of metabolic effects is olanzapine, quetiapine, risperidone, ziprasidone, and aripiprazole. However, weight gain can occur with all of these drugs and considerable variability exists among patients receiving the same drug regarding the risk of metabolic effects. Anti-psychotic agents not only increase the risk of metabolic disorder, they also increase the risk of CVA, akathisia, and movement disorders including EPS or tardive dyskinesia (more common with first generation antipsychotics) and more. 06/24/2024 Benign essential HTN (ICD-10 - I10) 07/07/2024 Generalized anxiety disorder (ICD-10 - F41.1) 43 year old single male seen today for initial assessment to start individual psychotherapy . Noted that he has seen Arminda Addison for the past couple of months for medication therapy. Hx of depression and anxiety reported by client. Diagnosed with Bipolar in 2003 after a psych admission for a suicide attempt(drank rat poison). This was his second psych admission. Client noted that he has suffered from depression and anxiety for most of his life. Denied any childhood abuse but repeatedly stated that I got turned into a monster by the men that I said something about. Client moreover claimed that once he joined the [employer] his life has not been the same. Believes that people are out to get him and do him harm, physical and fiancial. Client currrently lives with his mother and added that maternal grandmother lives next door. Client only child born to parents who had been 28 years when father in 2020. Suspects that father may have been murdered. Relationship with mother was good until father's . He described childhood as text book. Client paranoid and evasive hrough out assessment. 07/24/2024 Nicotine use (ICD-10 - Z72.0) 08/28/2024 Encounter for screening for depression (ICD-10 - Z13.31) 06/03/2024 Generalized anxiety disorder (ICD-10 - F41.1) 43 year old single male seen today for initial assessment to start individual psychotherapy . Noted that he has seen Arminda Addison for the past couple of months for medication therapy. Hx of depression and anxiety reported by client. Diagnosed with Bipolar in 2003 after a psych admission for a suicide attempt(drank rat poison). This was his second psych admission. Client noted that he has suffered from depression and anxiety for most of his life. Denied any childhood abuse but repeatedly stated that I got turned into a monster by the men that I said something about. Client moreover claimed that [facility] his life has not been the same. Believes that people are out to get him and do him harm, physical and fiancial. Client currrently lives with his mother and added that maternal grandmother lives next door. Client only child born to parents who had been 28 years when father in 2020. Suspects that father may have been murdered. Relationship with mother was good until father's . He described childhood as text book. Client paranoid and evasive hrough out assessment. 05/26/2024 Encounter for screening for cardiovascular disorders (ICD-10 - Z13.6) 05/26/2024 Dietary counseling and surveillance (ICD-10 - Z71.3) 06/24/2024 Encounter for screening for cardiovascular disorders (ICD-10 - Z13.6) 07/24/2024 Benign essential HTN (ICD-10 - I10) 08/28/2024 Nicotine use (ICD-10 - Z72.0) 08/28/2024 Benign essential HTN (ICD-10 - I10) 06/24/2024 Dietary counseling and surveillance (ICD-10 - Z71.3) 07/24/2024 Encounter for screening for cardiovascular disorders (ICD-10 - Z13.6) 05/26/2024 Encounter for screening for depression (ICD-10 - Z13.31) 05/26/2024 Nicotine use (ICD-10 - Z72.0) 07/24/2024 Dietary counseling and surveillance (ICD-10 - Z71.3) 06/24/2024 Nicotine use (ICD-10 - Z72.0) 08/28/2024 Encounter for screening for cardiovascular disorders (ICD-10 - Z13.6) 08/28/2024 Dietary counseling and surveillance (ICD-10 - Z71.3) 07/24/2024 Difficulty concentrating (ICD-10 - R41.840) 06/24/2024 Schizoaffective disorder, bipolar type (ICD-10 - F25.0) Second generation antipsychotics (SGAs) have metabolic syndrome issues with weight gain, increase in prolactin, increased waist circumference, increased lipids, and increased glucose. Thus routine monitoring of weight, metabolic labs, etc. is indicated. A general rank ordering of antipsychotics that have the greatest to the least risk of metabolic effects is olanzapine, quetiapine, risperidone, ziprasidone, and aripiprazole. However, weight gain can occur with all of these drugs and considerable variability exists among patients receiving the same drug regarding the risk of metabolic effects. Anti-psychotic agents not only increase the risk of metabolic disorder, they also increase the risk of CVA, akathisia, and movement disorders including EPS or tardive dyskinesia (more common with first generation antipsychotics) and more. 05/26/2024 Schizoaffective disorder, bipolar type (ICD-10 - F25.0) Second generation antipsychotics (SGAs) have metabolic syndrome issues with weight gain, increase in prolactin, increased waist circumference, increased lipids, and increased glucose. Thus routine monitoring of weight, metabolic labs, etc. is indicated. A general rank ordering of antipsychotics that have the greatest to the least risk of metabolic effects is olanzapine, quetiapine, risperidone, ziprasidone, and aripiprazole. However, weight gain can occur with all of these drugs and considerable variability exists among patients receiving the same drug regarding the risk of metabolic effects. Anti-psychotic agents not only increase the risk of metabolic disorder, they also increase the risk of CVA, akathisia, and movement disorders including EPS or tardive dyskinesia (more common with first generation antipsychotics) and more. 08/28/2024 Difficulty concentrating (ICD-10 - R41.840) 05/05/2024 Other Increase Abilify to 10mg daily for psychosis, pt agreeable to compliance with medication. Discussed ZENG, pt declined at this time Patient educated on all medications including potential benefits, side effects, risks. Educated on proper dosing schedule and importance of compliance. -Assessment and treatment plan reviewed with patient. -Compliance with treatment plan importance discussed. -Discussed the risks/benefits of this medication -Discussed medication side effects. -Contact office if symptoms worsen. -Discussed that it can take up to 6-8 weeks to see full therapeutic effects of psychotropic medications. -Crisis prevention hotline [phone]. 05/08/2024 Other Clinical Notes : Client participated in individual psychotherapy(CB T/Supportive) related to his hx of mood instability and anxiety. Based on today's session continued psychotherapy is recommended with no changes to treatment plan. Seen today for the first time since 02.20.2024. Client presented to session well groomed and fully oriented although continued to voice paranoia surrounding the [employer], the [employer] and director instructional material. Client verbal and engaged through out session. Reported upon presentation that he has been afraid that either the director [employer] or the cartel are gong to hurt him and or kill him. Fearful of being put in fdc and subsequenlty beat and raped. Noted that he has been living his life in fear for a long time as result of having joined the [employer]. Believes that his father was murdered either by the [employer] or the [employer]. Home life with mother going better then it had been but he still voices concern regarding who mother has become after of her (his father). Stated that he has decided to resume medication although does not really want to. Client provided supportive therapy. Next session in four weeks. 43 year old single male seen today for initial assessment to start individual psychotherapy . Noted that he has seen Arminda Addison for the past couple of months for medication therapy. Hx of depression and anxiety reported by client. Diagnosed with Bipolar in 2003 after a psych admission for a suicide attempt(drank rat poison). This was his second psych admission. Client noted that he has suffered from depression and anxiety for most of his life. Denied any childhood abuse but repeatedly stated that I got turned into a monster by the men that I said something about. Client moreover claimed that once he joined the [employer] his life has not been the same. Believes that people are out to get him and do him harm, physical and fiancial. Client currrently lives with his mother and added that maternal grandmother lives next door. Client only child born to parents who had been 28 years when father in 2020. Suspects that father may have been murdered. Relationship with mother was good until father's . He described childhood as text book. Client paranoid and evasive hrough out assessment. 05/26/2024 Other Chronically stable, appears to be improving. Cont Abilify 10mg daily -refill sent in today Patient educated on all medications including potential benefits, side effects, risks. Educated on proper dosing schedule and importance of compliance. Cont counseling -Assessment and treatment plan reviewed with patient. -Compliance with treatment plan importance discussed. -Discussed the risks/benefits of this medication -Discussed medication side effects. -Contact office if symptoms worsen. -Discussed that it can take up to 6-8 weeks to see full therapeutic effects of psychotropic medications. -Crisis prevention hotline 988. 06/03/2024 Other Clinical Notes : Client participated in individual psychotherapy(CB T/Supportive) related to his hx of mood instability and anxiety. Based on today's session continued psychotherapy is recommended with no changes to treatment plan. Client presented to session well groomed and fully oriented with no risk of harm to self or others. Client verbal and engaged through out session. Reported upon presentation that he has decided to take medication even though he does not want to or likes it. Noted that he has been better since last seen on 05.08.2024 with he and mother getting along better. Client repeatedly stated, through out session, that he is and has been hunted by the state police and FBI as well as other criminals. Moreover referred to self as an idiot in a room but unable to state why. Spoke about his (and mother's) desire to move away from this area, maybe [facility] or somewhere in [place]. Client overall less paranoid. Next session in four weeks. 43 year old single male seen today for initial assessment to start individual psychotherapy . Noted that he has seen Arminda Addison for the past couple of months for medication therapy. Hx of depression and anxiety reported by client. Diagnosed with Bipolar in 2003 after a psych admission for a suicide attempt(drank rat poison). This was his second psych admission. Client noted that he has suffered from depression and anxiety for most of his life. Denied any childhood abuse but repeatedly stated that I got turned into a monster by the men that I said something about. Client moreover claimed that once he joined the [employer] his life has not been the same. Believes that people are out to get him and do him harm, physical and fiancial. Client currrently lives with his mother and added that maternal grandmother lives next door. Client only child born to parents who had been 28 years when father in 2020. Suspects that father may have been murdered. Relationship with mother was good until father's . He described childhood as text book. Client paranoid and evasive hrough out assessment. 06/24/2024 Other stable on current medication regimen, continue at current doses. -Refills sent in today -No concerns today Patient educated on all medications including potential benefits, side effects, risks. Educated on proper dosing schedule and importance of compliance. -Assessment and treatment plan reviewed with patient. -Compliance with treatment plan importance discussed. -Discussed the risks/benefits of this medication -Discussed medication side effects. -Contact office if symptoms worsen. -Discussed that it can take up to 6-8 weeks to see full therapeutic effects of psychotropic medications. -Crisis prevention hotline 988. 07/07/2024 Other Client participated in individual psychotherapy(CB T/Supportive) related to his hx of mood instability and anxiety. Based on today's session continued psychotherapy is recommended with no changes to treatment plan. Client presented to session well groomed and fully oriented with no risk of harm to self or others. Client verbal and engaged through out session. Reported upon presentation that he has been fine since last seen on 06.03.2024. Noted that his weekend was okay as he was able to work on his jeep. Does not believe he and mother will be able to move away as they had wanted to. Client less paranoid today although still spoke about them and the manifesto that he wrote falling into the wrong hands. Relationship with mother better but not where he would like it to be. Client administered a phrases to help trigger reflections in who he really is. Client receptive to session feedback. Next session in four weeks. 43 year old single male seen today for initial assessment to start individual psychotherapy . Noted that he has seen Arminda Addison for the past couple of months for medication therapy. Hx of depression and anxiety reported by client. Diagnosed with Bipolar in 2003 after a psych admission for a suicide attempt(drank rat poison). This was his second psych admission. Client noted that he has suffered from depression and anxiety for most of his life. Denied any childhood abuse but repeatedly stated that I got turned into a monster by the men that I said something about. Client moreover claimed that once he joined the [employer] his life has not been the same. Believes that people are out to get him and do him harm, physical and fiancial. Client currrently lives with his mother and added that maternal grandmother lives next door. Client only child born to parents who had been 28 years when father in 2020. Suspects that father may have been murdered. Relationship with mother was good until father's . He described childhood as text book. Client paranoid and evasive hrough out assessment. 07/24/2024 Other Increase Abilify to 15mg daily for mood, anxiety Patient educated on all medications including potential benefits, side effects, risks. Educated on proper dosing schedule and importance of compliance. Discussed we will monitor for weight gain and side effects Schedule for ADHD evaluation Cont counseling with [facility] -Assessment and treatment plan reviewed with patient. -Compliance with treatment plan importance discussed. -Discussed the risks/benefits of this medication -Discussed medication side effects. -Contact office if symptoms worsen. -Discussed that it can take up to 6-8 weeks to see full therapeutic effects of psychotropic medications. -Crisis prevention hotline 988. 08/28/2024 Other Increase Abilify to 20mg daily for mood stabilization Patient educated on all medications including potential benefits, side effects, risks. Educated on proper dosing schedule and importance of compliance. -Assessment and treatment plan reviewed with patient. -Compliance with treatment plan importance discussed. -Discussed the risks/benefits of this medication -Discussed medication side effects. -Contact office if symptoms worsen. -Discussed that it can take up to 6-8 weeks to see full therapeutic effects of psychotropic medications. -Crisis prevention hotline 988. Plan Of Treatment Pending Test Test Name Order Date UDT 11/08/2023 ADHD Testing 07/24/2024 Insurance Providers Payer Name Payer Address Payer Phone Subscriber Number Group Number Insured Name Patient Relationship to Insured Coverage Start Date Coverage End Date Medicare-I l Medicare [address] [place] [phone] [id number] [employer] Self - patient is the insured Medical (General) History Medical History History ICD Code Problems: Bipolar affective disorder, cu rrent episode depression HTN Hospitalization History Reason Date(Month/Year) Inpatient at [facility] for suicidal ideat ion, paranoia 01/2024
[2025-03-01 17:36] LABS: Hematocrit 50.7 % (42.0-52.0); Hemoglobin 17.3 g/dL (14.0-18.0); Immature Granulocyte Percent A 0.2 % (0-0.5); Lymphocytes Absolute Auto 2.99 K/mm3 (0.9-3.2); Mean Corpuscular HGB Conc 34.1 g/dl (32-36); Mean Corpuscular Hemoglobin 31.2 pg (26-34); Mean Corpuscular Volume 91.5 fl (80-100); Nucleated Red Blood Cells Absolute Auto 0.000 K/mm3 (0.0-0.012); Nucleated Red Blood Cells Perc 0.0 % (0.0-0.2); Platelet Count Result 203 k/mm3 (150-375); Red Blood Count 5.54 M/mm3 (4.6-6.20); White Blood Count 8.5 K/mm3 (4.5-10.0)
[2025-03-01 17:37] LABS: Add Urine Microscopic? YES; Appearance Urine Clear (Clear); Glucose Urine UA Negative (Negative); Leukocyte Esterase Ur Negative LEU/UL (Negative); Nitrate Urine Negative (Negative); Non Pathogenic Casts 0-2; Specific Grav Ur 1.034 (1.001-1.035)
[2025-03-01 17:56] LABS: Alanine Aminotransferase 19 U/L (6-50); Albumin Level 4.5 g/dL (3.5-5.1); Alkaline Phosphatase 65 U/L (38-126); Anion Gap 6 mmol/L (4-12); Aspartate Amino Transferase 24 U/L (17-59); Bilirubin,Total 0.5 mg/dL (0.2-1.3); Blood Urea Nitrogen 18 mg/dL (9-20); Calcium 9.3 mg/dL (8.4-10.2); Carbon Dioxide 28 mmol/L (22-30); Chloride 104 mmol/L (98-107); Estimated CRCL calculation 94 ml/min; Estimated Glomerular Filt Rate > 60; Glucose 88 mg/dL (65-110); Lipase 99 U/L (23-300); Potassium 4.0 mmol/L (3.4-5.0); Sodium 138 mmol/L (137-145); Total Protein 7.4 g/dL (6.3-8.2)
--- NOTE | 2025-03-01 19:49 | PC.NURSE ---
pt to CT at this time
[2025-03-01] MEDS: PANTOPRAZOLE SODIUM IV 40 MG VIAL IV PUSH (20:06)
[2025-03-01 20:10] VITALS: BP 181/122; PULSE 81; RESP 16; O2SAT 98
--- NOTE | 2025-03-01 20:24 | ED_ITS ---
HPI - General Adult General Chief complaint: Abdominal Pain Stated complaint: abdominal pain Time Seen by Provider: 03/01/25 19:09 History of Present Illness HPI narrative: Patient year old gentleman presents emergency department chief complaint of epigastric discomfort. Patient reports that with ileus he has a uncomfortable feeling in his epigastric region the patient states that is not improved by anything patient does report that he has been somewhat anxious and feels as though individuals are trying to give him gastric cancer patient denies suicidal or homicidal ideation Related Data Allergies Allergy/AdvReac Type Severity Reaction Status Date / Time Penicillins Allergy Severe Unknown Verified 03/01/25 17:22 Review of Systems 2 Review of Systems: A 10 system review of systems was completed on the patient and is negative except for what is stated in the HPI. Nursing and ancillary documentation was reviewed. [facility] Past Medical History Medical History Family history of brain aneurysm dads side dad from at 59 which was his 2nd Prediabetes Bipolar disorder Hypertension Family History Family History Father Hypertension Cerebrovascular accident Mother Diabetes mellitus Depression Social History Social History Smoking packs per day: 2 Smoking cigarettes per day: 40.0 Smoking status: Current every day smoker Tobacco type: cigarettes Alcohol intake: current Alcohol use details: social Substance use: current Substance use type: marijuana Other substance usage details: vape Lack of Transportation: No Lack of Food: Never True Current Housing: I Have Housing Concerned About Future Housing: No Difficulty Paying Gas/Electric Bills: No Difficulty Paying for Meds: No Currently Unemployed: Decline to Answer Education: High School Diploma/GED Difficulty w/ Childcare or Family Care: No Living arrangements: with family Occupation/Education: unemployed Gender identity (if verbalized by the patient): Male Spiritual care concerns: No Agree to blood products: No Exam 2 Narrative: GENERAL: Well-appearing, well-nourished, and in no acute distress. HEAD: Normocephalic, atraumatic. EYES: PERRLA and EOMI. ENT: Nares clear, no rhinorrhea or epistaxis. Mucous membranes moist. NECK: Supple. CHEST: Clear to auscultation. No respiratory distress. HEART: Regular rate and rhythm. No murmur heard. Normal peripheral pulses. ABDOMEN: Soft, mild tenderness to palpation the epigastric region, nondistended, normal active bowel sounds. EXTREMITIES: Normal range of motion. No edema. SKIN: Warm, dry, no rash. NEURO: No focal deficits. Alert and oriented x3. PSYCH: Normal mood and affect. Course Vital Signs Vital signs: Vital Signs Temperature 36.6 C 03/01/25 16:29 Pulse Rate 96 03/01/25 16:29 Respiratory Rate 16 03/01/25 16:29 Blood Pressure 169/116 H 03/01/25 16:29 Pulse Oximetry 99 03/01/25 16:29 Oxygen Delivery Room Air 03/01/25 16:29 Temperature 36.6 C 03/01/25 16:29 Pulse Rate 81 03/01/25 20:10 Respiratory Rate 16 03/01/25 20:10 Blood Pressure 181/122 H 03/01/25 20:10 Pulse Oximetry 98 03/01/25 20:10 Oxygen Delivery Room Air 03/01/25 16:29 [facility] Differential Diagnosis Differential Diagnosis: Gastritis, pancreatitis, cholecystitis, choledocholithiasis, intra-abdominal infection, UTI, pyelonephritis Laboratory studies were obtained on the patient which showed a normal CBC normal CMP lipase was normal urinalysis showed no evidence UTI CT scan of the abdomen pelvis showed no acute findings Lab Data [facility] Lab Attestation statement: I personally reviewed the patient's lab results. 03/01/25 17:29 03/01/25 17:29 Labs: Lab Results 03/01/25 03/01/25 Range/Units 17:25 17:29 WBC 8.5 (4.5-10.0) K/mm3 RBC 5.54 (4.6-6.20) M/mm3 Hgb 17.3 (14.0-18.0) g/dL Hct 50.7 (42.0-52.0) % MCV 91.5 (80-100) fl MCH 31.2 (26-34) pg MCHC 34.1 (32-36) g/dl RDW 12.6 (11.5-14.5) % Plt Count 203 (150-375) k/mm3 MPV 9.7 (7.4-10.4) fl Immature Gran % (Auto) 0.2 (0-0.5) % Neut % (Auto) 48.9 (45.5-73.1) % Lymph % (Auto) 35.3 (18.3-44.2) % [place] % (Auto) 8.4 (2.6-8.5) % Eos % (Auto) 6.4 H (0-4.4) % Baso % (Auto) 0.8 (0.2-1.2) % Lymph # (Auto) 2.99 (0.9-3.2) K/mm3 [place] # (Auto) 0.7 H (0.1-0.6) K/mm3 Eos # (Auto) 0.5 H (0-0.3) K/mm3 Baso # (Auto) 0.1 (0.0-0.1) K/mm3 Abs Immat Gran (auto) 0.02 (0.00-0.031) K/mm3 Absolute Neuts (auto) 4.1 (1.3-6.7) K/mm3 Absolute Nucleated RBC 0.000 (0.0-0.012) K/mm3 Nucleated RBC % 0.0 (0.0-0.2) % Sodium 138 (137-145) mmol/L Potassium 4.0 (3.4-5.0) mmol/L Chloride 104 (98-107) mmol/L Carbon Dioxide 28 (22-30) mmol/L Anion Gap 6 (4-12) mmol/L BUN 18 (9-20) mg/dL Creatinine 1.02 (0.7-1.3) mg/dL Estim Creat Clear Calc 94 ml/min Estimated GFR > 60 (59 - ) Glucose 88 (65-110) mg/dL Calcium 9.3 (8.4-10.2) mg/dL Total Bilirubin 0.5 (0.2-1.3) mg/dL AST 24 (17-59) U/L ALT 19 (6-50) U/L Alkaline Phosphatase 65 (38-126) U/L Total Protein 7.4 (6.3-8.2) g/dL Albumin 4.5 (3.5-5.1) g/dL Lipase 99 (23-300) U/L Urine Color Yellow (Yellow) Urine Appearance Clear (Clear) Urine pH 6.0 (5.0-9.0) Ur Specific [place] 1.034 (1.001-1.035) Urine Protein Trace (Negative) mg/dL Urine Glucose (UA) Negative (Negative) mg/dL Urine Ketones Trace H (Negative) mg/dL Ur Blood (Man) Negative (Negative) Urine Nitrate Negative (Negative) Urine Bilirubin Negative (Negative) Urine Urobilinogen 1.0 (<2.0) mg/dL Leukocyte Esterase Rfl Negative (Negative) HENRI/UL Urine RBC 0-2 (0-2) /hpf Urine WBC 0-5 (0-3) /hpf Ur Squamous Epith Cells None seen (Few) /hpf Urine Bacteria None seen /hpf Urine Casts 0-2 Imaging Data Radiologist's impression: ITS Impressions Abdomen/Pelvis CT 03/01/25 20:00 IMPRESSION: 1. No acute abdominal abnormality. 2: Fatty infiltration of the liver. Discharge Plan Discharge Clinical Impression: Abdominal pain, epigastric, Gastritis Patient Disposition: Home Condition: Stable Instructions: Antibiotic Form, Gastritis (ED), Abdominal Pain (ED) Patient Language: Divehi Prescriptions: New pantoprazole [Protonix] 40 mg tablet,delayed release (DR/EC) 40 mg PO QAM 28 Days Qty: 28 0RF No Action lisinopril-hydrochlorothiazide 20-25 mg tablet See Rx Instructions .ROUTE .COMPLEX Qty: 30 0RF Dose Instruction: Take 1 tablet by mouth once daily Rx Instructions: Take 1 tablet by mouth once daily Follow-up/Referrals: Nimco Blankenship APRN [Primary Care Provider, Internal Medicine] Time of Disposition: 20:27
[2025-03-01 20:49] VITALS: BP 174/96; PULSE 74; RESP 18; O2SAT 96
== END 2025-03-01 20:51 | disposition home or self-care (01) ==
PROVIDERS: Student in an Organized Health Care Education/Training Program; Emergency Provider Emergency Medicine; PCP Nurse Practitioner Family
DX: K29.70 Gastritis, unspecified, without bleeding (principal); I10 Essential (primary) hypertension; R73.03 Prediabetes; F17.210 Nicotine dependence, cigarettes, uncomplicated; K76.0 Fatty (change of) liver, not elsewhere classified
CPT/HCPCS: 36415; 74177; 80053; 81001; 83690; 85025; 96374; 99284; J2470; Q9967